=== PATIENT | male | born 1960 | race African-American/Black ===

== ENCOUNTER 2020-12-28 16:48 | Emergency (ER) | payer OTHER ==
[2020-12-28 18:17] LABS: BASOPHIL 0.5 % (0-2); EOSINOPHIL 4.1 % (0-5); HCT 37.3 % (42.0-52.0); HGB 12.2 g/dl (13.2-18.0); LYMPHOCYTE 29.3 % (15-48); MCHC 32.7 g/dL (32.0-36.0); MCV 91.6 fL (78.0-100.0); MONOCYTE 11.2 % (0-12); MPV 10.1 fL (6.0-9.5); NEUTROPHIL 54.6 % (41-80); NRBC 0; PLT 162 K/uL (150-400); RBC 4.07 M/uL (4.70-6.00); RDW 12.5 % (11.5-14.0); WBC 5.8 K/uL (4.0-10.5)
[2020-12-28 18:31] LABS: PROTHROMBIN TIME 12.5 SECONDS (11.4-13.6); PTT 28.8 SECONDS (22.2-34.7)
[2020-12-28 18:37] LABS: ALBUMIN 3.7 g/dL (3.4-5.0); BILIRUBIN - TOTAL 0.8 mg/dL (0.2-1.0); BUN/CREAT RATIO (CALC) 15.3 RATIO; CREATININE 0.72 mg/dL (0.67-1.17); GLOBULIN (CALCULATION) 3.6 g/dL; POTASSIUM 3.9 mmol/L (3.5-5.1); TOTAL PROTEIN 7.3 g/dL (6.4-8.2)
== END 2020-12-28 20:53 | disposition other institution (70) ==
LOC: FER 16:48
PROVIDERS: Emergency Medicine
DX: R55 Syncope and collapse (principal); S06.5X1A Traumatic subdural hemorrhage with loss of consciousness of 30 minutes or less, initial encounter; R51.9 Headache, unspecified; I10 Essential (primary) hypertension; I25.10 Atherosclerotic heart disease of native coronary artery without angina pectoris; F17.210 Nicotine dependence, cigarettes, uncomplicated; Z79.02 Long term (current) use of antithrombotics/antiplatelets; W19.XXXA Unspecified fall, initial encounter; Z20.822 Contact with and (suspected) exposure to COVID-19
CPT/HCPCS: 36415; 70450; 70486; 72125; 80053; 84484; 85025; 85610; 85730; 93005; U0002

== ENCOUNTER 2021-03-06 23:13 | Emergency (ER) | payer OTHER ==
[2021-03-07 00:36] LABS: BASOPHIL 0.6 % (0-2); EOSINOPHIL 2.6 % (0-5); HCT 38.3 % (42.0-52.0); HGB 12.5 g/dl (13.2-18.0); LYMPHOCYTE 53.7 % (15-48); MCH 29.4 pg (25.0-31.0); MCHC 32.6 g/dL (32.0-36.0); MCV 90.1 fL (78.0-100.0); MONOCYTE 7.8 % (0-12); MPV 9.9 fL (6.0-9.5); NEUTROPHIL 34.9 % (41-80); NRBC 0; PLT 251 K/uL (150-400); RBC 4.25 M/uL (4.70-6.00)
[2021-03-07 00:41] LABS: INR 0.99 (0.9-1.2); PROTHROMBIN TIME 12.4 SECONDS (11.4-13.6); PTT 26.4 SECONDS (22.2-34.7)
[2021-03-07 00:51] LABS: ALBUMIN 3.6 g/dL (3.4-5.0); BILIRUBIN - TOTAL 0.4 mg/dL (0.2-1.0); BUN/CREAT RATIO (CALC) 6.9 RATIO; CREATININE 0.87 mg/dL (0.67-1.17); POTASSIUM 3.7 mmol/L (3.5-5.1); TOTAL PROTEIN 7.6 g/dL (6.4-8.2)
== END 2021-03-07 04:25 | disposition home or self-care (01) ==
LOC: FER 23:13
PROVIDERS: Emergency Medicine Emergency Medical Services
DX: R55 Syncope and collapse (principal); I44.0 Atrioventricular block, first degree; I49.3 Ventricular premature depolarization; I10 Essential (primary) hypertension; K21.9 Gastro-esophageal reflux disease without esophagitis; E78.5 Hyperlipidemia, unspecified; F17.200 Nicotine dependence, unspecified, uncomplicated; Z95.5 Presence of coronary angioplasty implant and graft; Z79.82 Long term (current) use of aspirin; Z98.890 Other specified postprocedural states; Z79.899 Other long term (current) drug therapy
CPT/HCPCS: 36415; 70450; 71045; 80053; 82550; 84484; 85025; 85610; 85730; 93005; G0480

== ENCOUNTER 2021-08-21 00:18 | Inpatient (IN) | payer OTHER ==
[~2021-08-21] VITALS: Ht 191.8 cm; Wt 99.9 kg
[2021-08-21 00:48] LABS: BASOPHIL 0.3 % (0-2); EOSINOPHIL 0 % (0-5); HCT 50.9 % (42.0-52.0); HGB 16.4 g/dl (13.2-18.0); LYMPHOCYTE 38.1 % (15-48); MCH 29.5 pg (25.0-31.0); MCHC 32.2 g/dL (32.0-36.0); MCV 91.5 fL (78.0-100.0); MONOCYTE 9.7 % (0-12); MPV 12.5 fL (6.0-9.5); NRBC 0; PLT 139 K/uL (150-400); RBC 5.56 M/uL (4.70-6.00); WBC 3.6 K/uL (4.0-10.5)
[2021-08-21 00:49] LABS: NEUTROPHIL 51.1 % (41-80)
[2021-08-21 00:50] LABS: INR 1.16 (0.9-1.2); PROTHROMBIN TIME 14.2 SECONDS (11.8-13.4); PTT 30.1 SECONDS (24.4-34.7)
[2021-08-21 00:51] LABS: D-DIMER 3.51 ug/mLFEU (0.00-0.41)
[2021-08-21 01:03] LABS: PRO-BNP 75 pg/mL (<125)
[2021-08-21 01:26] LABS: BILIRUBIN 1+ mg/dL (NEGATIVE); BLOOD NEGATIVE Ery/uL (NEGATIVE); GLUCOSE (U) NORMAL (NORMAL); LEUKOCYTES NEGATIVE Leu/uL (NEGATIVE); NITRITE POSITIVE (NEGATIVE); PROTEIN 1+ mg/dL (NEGATIVE); SPECIFIC GRAVITY >=1.030 (1.001-1.030)
[2021-08-21 01:27] LABS: LACTIC ACID 2.3 mmol/L (0.4-1.9)
[2021-08-21 01:31] LABS: ALBUMIN 3.5 g/dL (3.4-5.0); BILIRUBIN - TOTAL 0.9 mg/dL (0.2-1.0); BUN/CREAT RATIO (CALC) 24.7 RATIO; C-REACTIVE PROTEIN 3.6 mg/dL (<=0.90); CREATININE 1.46 mg/dL (0.67-1.17); GLOBULIN (CALCULATION) 4.5 g/dL; MAGNESIUM 2.3 mg/dL (1.8-2.4); POTASSIUM 4.9 mmol/L (3.5-5.1)
[2021-08-21 01:35] LABS: CLARITY SLIGHTLY HAZY (CLEAR); COLOR AMBER (YELLOW)
[2021-08-21 01:37] LABS: BACTERIA 3+; SQUAMOUS EPITHELIAL CELLS RARE; URINARY RBC RARE
[2021-08-21 01:38] LABS: GRANULAR CASTS TRACE
[2021-08-21] MEDS ORDERED: ATORVASTATIN CA40 MG PO (09:32)
[2021-08-21] MEDS ORDERED: NORCO 5-325 TA1 EACH PO (09:33)
[2021-08-21] MEDS ORDERED: PLAVIX75 MG PO (09:33)
[2021-08-21] MEDS ORDERED: LOPRESSOR50 MG PO (09:34)
[2021-08-21] MEDS ORDERED: LEVETIRACETAM500 MG PO (09:34)
[2021-08-22 06:19] LABS: BASOPHIL 0.3 % (0-2); EOSINOPHIL 0 % (0-5); HGB 14.4 g/dl (13.2-18.0); LYMPHOCYTE 32.3 % (15-48); MCH 29.2 pg (25.0-31.0); MCV 91.3 fL (78.0-100.0); MONOCYTE 23.8 % (0-12); MPV 11.3 fL (6.0-9.5); NEUTROPHIL 42.8 % (41-80); NRBC 0; PLT 152 K/uL (150-400); RBC 4.93 M/uL (4.70-6.00); RDW 12.1 % (11.5-14.0)
[2021-08-22 06:20] LABS: WBC 3.5 K/uL (4.0-10.5)
[2021-08-22 07:19] LABS: CREATININE 0.75 mg/dL (0.67-1.17); GLOBULIN (CALCULATION) 4.1 g/dL; POTASSIUM 4.7 mmol/L (3.5-5.1); TOTAL PROTEIN 7.1 g/dL (6.4-8.2)
[2021-08-24 05:49] LABS: BASOPHIL 0.2 % (0-2); EOSINOPHIL 0 % (0-5); HCT 41.6 % (42.0-52.0); HGB 13.5 g/dl (13.2-18.0); LYMPHOCYTE 25.1 % (15-48); MCH 29.4 pg (25.0-31.0); MCHC 32.5 g/dL (32.0-36.0); MCV 90.6 fL (78.0-100.0); MONOCYTE 18.8 % (0-12); MPV 11.4 fL (6.0-9.5); NRBC 0; PLT 215 K/uL (150-400); RBC 4.59 M/uL (4.70-6.00)
[2021-08-24 05:50] LABS: WBC 4.7 K/uL (4.0-10.5)
[2021-08-24 06:46] LABS: ALBUMIN 3.1 g/dL (3.4-5.0); BILIRUBIN - TOTAL 1.5 mg/dL (0.2-1.0); BUN/CREAT RATIO (CALC) 26.9 RATIO; CREATININE 0.67 mg/dL (0.67-1.17); GLOBULIN (CALCULATION) 4.2 g/dL; POTASSIUM 4.3 mmol/L (3.5-5.1); TOTAL PROTEIN 7.3 g/dL (6.4-8.2)
--- NOTE | 2021-08-24 12:36 | NUR ---
08/24/21 02 has been ordered from [facility] per patient request.
[2021-08-25] MEDS ORDERED: VENTOLIN HFA IN18 GM INH (10:12)
[2021-08-25] MEDS ORDERED: DEXAMETHASONE6 MG PO (10:12)
== END 2021-08-25 13:45 | disposition home or self-care (01) | DRG 177 ==
LOC: FER 00:18 → FMS 08:10
PROVIDERS: Emergency Medicine; ADMIT Internal Medicine
PROC: XW033E5 Introduction of Remdesivir Anti-infective into Peripheral Vein, Percutaneous Approach, New Technology Group 5 (ICD-10-PCS; principal; 2021-08-21)
DX: U07.1 COVID-19 (principal); J12.82 Pneumonia due to coronavirus disease 2019; J96.01 Acute respiratory failure with hypoxia; I25.10 Atherosclerotic heart disease of native coronary artery without angina pectoris; I10 Essential (primary) hypertension; R59.0 Localized enlarged lymph nodes; Z98.890 Other specified postprocedural states; Z79.02 Long term (current) use of antithrombotics/antiplatelets; Z79.899 Other long term (current) drug therapy
CPT/HCPCS: 36415; 36600; 71275; 80053; 81001; 82728; 82803; 83605; 83615; 83735; 83880; 84145; 84484; 85025; 85379; 85610; 85730; 86140; 87040; 87088; 93005; 94640; C9399; J1100; J1650; J7030; J7050; J8540; Q9967; U0002